=== PATIENT | male | born 1950 | race Caucasian/White ===

== ENCOUNTER 2016-08-19 21:24 | Emergency (ER) | payer MEDICARE, OTHER ==
[~2016-08-19 21:24] MED LIST: ALBU17I INH; BENZ100 PO; CARV3.125 PO; FENT50DI T-DERMAL; LISI2.5T3 PO; OMEP40CA2 PO; OXYC30TA PO; PLAV75TA PO; XANA2TAB2 PO; ZITH500T PO
[2016-08-19 21:37] VITALS: BP 148/83; PULSE 61; RESP 16; TEMP 98.6; O2SAT 100
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
[2016-08-19] MEDS ORDERED: OXYC30TA PO (21:46)
[2016-08-19] MEDS ORDERED: LISI2.5T3 PO (21:46)
[2016-08-19] MEDS ORDERED: CARV3.12 PO (21:46)
[2016-08-19] MEDS ORDERED: PLAV75TA29 PO (21:46)
[2016-08-19] MEDS ORDERED: ALPR2TAB3 PO (21:46)
[2016-08-19] MEDS ORDERED: OMEP40CA2 PO (21:46)
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
[2016-08-19 22:08] LABS: APTT (PATIENT) 21.8 SEC (24.3-30.1); PROTHROMBIN TIME - PATIENT 11.1 SEC (9.8-11.6)
[2016-08-19 22:13] LABS: BLOOD, URINE NEG (NEG); COMMENT (UR) CULT NOT INDICATED; CULTURE IF INDICATED CULT NOT INDICATED; GLUCOSE,URINE NEG (NEG); KETONE, URINE NEG (NEG); NITRITE,URINE NEG (NEG); PH, URINE 6.5 (5.0-8.5); SQUAMOUS EPITHELIAL CELL URINE 1 /hpf (0-5); URINE COLOR YELLOW (YELLW/STRAW)
[2016-08-19 22:17] LABS: AMPHETAMINE, URINE NEG (NEG); BARBITURATES, URINE NEG (NEG); COCAINE, URINE NEG (NEG)
[2016-08-19 22:38] LABS: ALKALINE PHOSPHATASE 95 U/L (45-117); TOTAL BILIRUBIN ADULT 0.6 MG/DL (0.2-1.0)
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
[2016-08-19 22:50] LABS: ALT (GPT) 40 U/L (12-78); ANION GAP 8 MEQ/L (5-15); AST (GOT) 37 U/L (15-37); BICARBONATE 25.6 MEQ/L (21.0-32.0); BLOOD UREA NITROGEN 17 MG/DL (7-18); CHLORIDE 107 MEQ/L (98-107); GLOMERULAR FILTRATION RATE 75 ML/MIN (>89); SODIUM (NA) 141 MEQ/L (136-145)
[2016-08-19 22:54] LABS: POTASSIUM 4.7 MEQ/L (3.5-5.1)
[2016-08-19 22:58] LABS: AUTOMATED NEUTROPHIL # 4.7 TH/MM3 (1.8-7.7); BASOPHIL # 0.1 TH/MM3 (0-0.2); BASOPHIL % 0.6 % (0.0-2.0); EOSINOPHIL # 0.1 TH/MM3 (0-0.4); EOSINOPHIL % 1.2 % (0.0-4.0); HEMATOCRIT 39.9 % (39.0-51.0); HEMO FLAGS DIFF FINAL; LYMPH % 32.2 % (9.0-44.0); LYMPHOCYTE # 2.8 TH/MM3 (1.0-4.8); MEAN CELL VOLUME 92.3 FL (80.0-100.0); MEAN CORPUSCULAR HEMOGLOBIN 30.3 PG (27.0-34.0); MEAN CORPUSCULAR HGB CONC 32.9 % (32.0-36.0); PLATELET COUNT 182 TH/MM3 (150-450); RED BLOOD COUNT 4.32 MIL/MM3 (4.50-5.90); RED CELL DISTRIBUTION WIDTH 17.8 % (11.6-17.2); WHITE BLOOD COUNT 8.8 TH/MM3 (4.0-11.0)
[2016-08-20 05:00] VITALS: BP 139/90; PULSE 72; RESP 18; O2SAT 100
--- NOTE | 2016-08-20 06:50 | PD ---
Data Data Last Documented VS Vital Signs Date Time Temp Pulse Resp B/P Pulse Ox O2 Delivery O2 Flow Rate FiO2 08/19/16 21:37 98.6 61 16 148/83 100 Orders Complete Blood Count With Diff (08/19/16 21:28) Comprehensive Metabolic Panel (08/19/16 21:28) Psych Screen (08/19/16 21:28) Drug Screen, Random Urine (08/19/16 21:28) Alcohol (Ethanol) (08/19/16 21:28) Prothrombin Time / Inr (Pt) (08/19/16 21:37) Act Partial Throm Time (Ptt) (08/19/16 21:37) Urinalysis - C+S If Indicated (08/19/16 21:37) Chest, Single Ap (08/19/16 21:37) Ct Brain W/O Iv Contrast(Rout) (08/19/16 21:37) Creatine Kinase (Cpk) (08/19/16 21:38) Labs Laboratory Tests Test 08/19/16 08/19/16 21:40 22:50 Prothrombin Time 11.1 SEC Prothromb Time International 1.0 RATIO Ratio Activated Partial 21.8 SEC Thromboplast Time Urine Color YELLOW Urine Turbidity CLEAR Urine pH 6.5 Urine Specific [place] 1.010 Urine Protein 30 mg/dL Urine Glucose (UA) NEG mg/dL Urine Ketones NEG mg/dL Urine Occult Blood NEG Urine Nitrite NEG Urine Bilirubin NEG Urine Urobilinogen LESS THAN 2.0 MG/DL Urine Leukocyte Esterase NEG Urine RBC 2 /hpf Urine WBC 3 /hpf Urine Squamous Epithelial 1 /hpf Cells Microscopic Urinalysis Comment CULT NOT INDICATED Sodium Level 141 MEQ/L Potassium Level 4.7 MEQ/L Chloride Level 107 MEQ/L Carbon Dioxide Level 25.6 MEQ/L Anion Gap 8 MEQ/L Blood Urea Nitrogen 17 MG/DL Creatinine 1.00 MG/DL Estimat Glomerular Filtration 75 ML/MIN Rate Random Glucose 79 MG/DL Calcium Level 8.7 MG/DL Total Bilirubin 0.6 MG/DL Aspartate Amino Transf 37 U/L (AST/SGOT) Alanine Aminotransferase 40 U/L (ALT/SGPT) Alkaline Phosphatase 95 U/L Total Creatine Kinase 176 U/L Total Protein 7.8 GM/DL Albumin 3.9 GM/DL Urine Opiates Screen POS Urine Barbiturates Screen NEG Urine Amphetamines Screen NEG Urine Benzodiazepines Screen POS Urine Cocaine Screen NEG Urine Cannabinoids Screen NEG Ethyl Alcohol Level LESS THAN 3 MG/DL White Blood Count 8.8 TH/MM3 Red Blood Count 4.32 MIL/MM3 Hemoglobin 13.1 GM/DL Hematocrit 39.9 % Mean Corpuscular Volume 92.3 FL Mean Corpuscular Hemoglobin 30.3 PG Mean Corpuscular Hemoglobin 32.9 % Concent Red Cell Distribution Width 17.8 % Platelet Count 182 TH/MM3 Mean Platelet Volume 7.8 FL Neutrophils (%) (Auto) 54.0 % Lymphocytes (%) (Auto) 32.2 % Monocytes (%) (Auto) 12.0 % Eosinophils (%) (Auto) 1.2 % Basophils (%) (Auto) 0.6 % Neutrophils # (Auto) 4.7 TH/MM3 Lymphocytes # (Auto) 2.8 TH/MM3 Monocytes # (Auto) 1.1 TH/MM3 Eosinophils # (Auto) 0.1 TH/MM3 Basophils # (Auto) 0.1 TH/MM3 CBC Comment DIFF FINAL Differential Comment MDM Supervised Visit with TIFFANIE: Yes Narrative Course The history, exam, and medical decision-making in the associated mid-level provider note were completed with my assistance. I reviewed and agree with the findings presented. I attest that I had a [id number] encounter with the patient on the same day, and personally performed and documented my assessment and findings in the medical record. *My assessment and Findings: I saw this patient earlier in the night with the PA. He was found wandering on the street. He states he was traveling to his girlfriend's house. According to the [employer]digits act he was not making sense and seen. He doesn't appear to have a history of psychiatric disease. Initial workup here doesn't show any acute abnormality. CT scan suggests he said some kind bleed or stroke in the frontal region of his brain with craniotomy that's new from previous but not recent. We 're unable to get any corroborating information from family or friends. We'll leave Shelton act in place for now, psychiatry to see, reassess. Diagnosis Primary Impression: Иван Hernandez MD Aug 20, 2016 06:50
--- NOTE | 2016-08-20 10:18 | PD ---
Data Data Last Documented VS Vital Signs Date Time Temp Pulse Resp B/P Pulse Ox O2 Delivery O2 Flow Rate FiO2 08/20/16 10:33 62 16 136/69 96 Room Air 08/19/16 21:37 98.6 Orders Complete Blood Count With Diff (08/19/16 21:28) Comprehensive Metabolic Panel (08/19/16 21:28) Psych Screen (08/19/16 21:28) Drug Screen, Random Urine (08/19/16 21:28) Alcohol (Ethanol) (08/19/16 21:28) Prothrombin Time / Inr (Pt) (08/19/16 21:37) Act Partial Throm Time (Ptt) (08/19/16 21:37) Urinalysis - C+S If Indicated (08/19/16 21:37) Chest, Single Ap (08/19/16 21:37) Ct Brain W/O Iv Contrast(Rout) (08/19/16 21:37) Creatine Kinase (Cpk) (08/19/16 21:38) Diet Regular Basic (08/20/16 Breakfast) Labs Laboratory Tests Test 08/19/16 08/19/16 21:40 22:50 Prothrombin Time 11.1 SEC Prothromb Time International 1.0 RATIO Ratio Activated Partial 21.8 SEC Thromboplast Time Urine Color YELLOW Urine Turbidity CLEAR Urine pH 6.5 Urine Specific [place] 1.010 Urine Protein 30 mg/dL Urine Glucose (UA) NEG mg/dL Urine Ketones NEG mg/dL Urine Occult Blood NEG Urine Nitrite NEG Urine Bilirubin NEG Urine Urobilinogen LESS THAN 2.0 MG/DL Urine Leukocyte Esterase NEG Urine RBC 2 /hpf Urine WBC 3 /hpf Urine Squamous Epithelial 1 /hpf Cells Microscopic Urinalysis Comment CULT NOT INDICATED Sodium Level 141 MEQ/L Potassium Level 4.7 MEQ/L Chloride Level 107 MEQ/L Carbon Dioxide Level 25.6 MEQ/L Anion Gap 8 MEQ/L Blood Urea Nitrogen 17 MG/DL Creatinine 1.00 MG/DL Estimat Glomerular Filtration 75 ML/MIN Rate Random Glucose 79 MG/DL Calcium Level 8.7 MG/DL Total Bilirubin 0.6 MG/DL Aspartate Amino Transf 37 U/L (AST/SGOT) Alanine Aminotransferase 40 U/L (ALT/SGPT) Alkaline Phosphatase 95 U/L Total Creatine Kinase 176 U/L Total Protein 7.8 GM/DL Albumin 3.9 GM/DL Urine Opiates Screen POS Urine Barbiturates Screen NEG Urine Amphetamines Screen NEG Urine Benzodiazepines Screen POS Urine Cocaine Screen NEG Urine Cannabinoids Screen NEG Ethyl Alcohol Level LESS THAN 3 MG/DL White Blood Count 8.8 TH/MM3 Red Blood Count 4.32 MIL/MM3 Hemoglobin 13.1 GM/DL Hematocrit 39.9 % Mean Corpuscular Volume 92.3 FL Mean Corpuscular Hemoglobin 30.3 PG Mean Corpuscular Hemoglobin 32.9 % Concent Red Cell Distribution Width 17.8 % Platelet Count 182 TH/MM3 Mean Platelet Volume 7.8 FL Neutrophils (%) (Auto) 54.0 % Lymphocytes (%) (Auto) 32.2 % Monocytes (%) (Auto) 12.0 % Eosinophils (%) (Auto) 1.2 % Basophils (%) (Auto) 0.6 % Neutrophils # (Auto) 4.7 TH/MM3 Lymphocytes # (Auto) 2.8 TH/MM3 Monocytes # (Auto) 1.1 TH/MM3 Eosinophils # (Auto) 0.1 TH/MM3 Basophils # (Auto) 0.1 TH/MM3 CBC Comment DIFF FINAL Differential Comment MDM Supervised Visit with TIFFANIE: Yes Narrative Course He called by psychiatric nursing to evaluate patient for prolonged tourniquet time today. Patient apparently had his blood drawn approximately 10:30 PM last night and tourniquet was discovered still on his left upper arm at 6:30 this morning. The tourniquet was immediately removed and I was notified. Patient was reexamined by me he has full nontender range of motion at his fingers wrist hand and elbow. He has no paresthesias has 5 out of 5 strength. Pulses are 2+ and strong at the radius and equal bilaterally. There is a small swelling at the area that the tourniquet was applied. Patient states his arm was somewhat swollen but the swelling is gone down significantly since they took tourniquet off. There is signs of adequate perfusion throughout his upper extremity. Cap refill is brisk in all 5 fingers. At this point I appreciate no significant injury from his tourniquet being on. Discussed the nursing my recommendations for ice and ice pack 20 minutes on 20 minutes off for up to 6 times a day as needed for pain and swelling. Increasing pain or swelling or paresthesias should be grounds for reevaluation by emergency room physician. Diagnosis Primary Impression: Confusion Additional Instruction: Use ice 20 minutes on and 20 minutes off as needed for pain to the left upper extremity. Increasing pain swelling or numbness and tingling should prompt emergent reevaluation Condition: Stable Bonilla Bobby MD Aug 20, 2016 10:18
[2016-08-20 10:33] VITALS: BP 136/69; PULSE 62; RESP 16; O2SAT 96
== END 2016-08-20 13:10 ==
LOC: NEPE 21:24 → NEPJ 08-20 13:10
DX: R41.0 Disorientation, unspecified (principal); J45.909 Unspecified asthma, uncomplicated; F41.8 Other specified anxiety disorders; K74.60 Unspecified cirrhosis of liver; J44.9 Chronic obstructive pulmonary disease, unspecified; Z86.19 Personal history of other infectious and parasitic diseases; K75.89 Other specified inflammatory liver diseases; I10 Essential (primary) hypertension; F17.210 Nicotine dependence, cigarettes, uncomplicated
CPT/HCPCS: 70450; 71010; 80053; 80307; 81001; 82550; 85025; 85610; 85730